=== PATIENT | female | born 1980 | race Caucasian/White ===

== ENCOUNTER 2020-03-21 06:36 | Day surgery (SDC) | payer BC ==
[~2020-03-21 06:36] MED LIST: Clindamycin Phosphate in D5W 900 MG in Premix Bag 1 BAG IV SCH; Gentamicin Pediatric 10 MG/ML 2 ML SDV IV ONE; Sodium Chloride 0.9% 10 ML SDV IV PRN; Sodium Chloride 0.9% 10 ML Syringe FLUSH PRN; Sodium Chloride 0.9% 2.5 ML Syringe FLUSH PRN
[2020-03-21] MEDS ORDERED: Propofol 200 MG/20 ML SDV ONE ×4 (06:49→09:21)
[2020-03-21] MEDS ORDERED: Midazolam 1 MG/ML 2 ML SDV ONE (06:50)
[2020-03-21] MEDS ORDERED: fentaNYL 250 MCG/5 ML SDV ONE (06:50)
[2020-03-21] MEDS ORDERED: Lidocaine 2% 5 ML SDV ONE (06:53)
[2020-03-21] MEDS ORDERED: Dexamethasone 4 MG/ML 5 ML MDV ONE (06:53)
[2020-03-21] MEDS ORDERED: Ondansetron 4 MG/2 ML SDV ONE (06:53)
[2020-03-21] MEDS ORDERED: Glycopyrrolate 0.2 MG/ML SDV ONE ×2 (06:53→08:45)
[2020-03-21] MEDS ORDERED: Rocuronium Bromide 50 MG/5 ML Syringe ONE (06:53)
[2020-03-21 07:11] LABS: CARBON DIOXIDE,CO2 26.7 mmol/L (21.0-32.0); POTASSIUM,K 4.6 mmol/L (3.5-5.1)
[2020-03-21] MEDS ORDERED: Fluorescein 5 ML Vial ONE (07:23)
[2020-03-21] MEDS ORDERED: Methylene Blue 50 MG/10 ML Ampule ONE (07:23)
[2020-03-21] MEDS ORDERED: Bupivacaine 0.25% 10 ML SDV ONE (07:24)
[2020-03-21] MEDS ORDERED: Octyl 2-Cyanoacrylate 1 Tube ONE (07:24)
[2020-03-21] MEDS ORDERED: Gentamicin 460 MG in Dextrose 5% in Water 100 ML IV ONE ×2 (07:30)
--- NOTE | 2020-03-21 07:30 | PCM.PREANE ---
Preanesthetic Assessment - Anesthesia/Transfusion/Family Hx Anesthesia History: Prior Anesthesia Reaction Type of Anesthesia Reaction: Excessive Nausea/Vomiting Other Type of Anesthesia Reaction Comment: "hard to wake up after breast reduction & BP was low" Transfusion History: No Prior Transfusion(s) - Review of Systems General: No Symptoms Pulmonary: No Symptoms Cardiovascular: No Symptoms Gastrointestinal: No Symptoms Neurological: No Symptoms Other: Reports: None - Physical Assessment NPO Status Date: 03/20/20 Vital Signs: Last Vital Signs Temp 97.3 F 03/21/20 06:44 Pulse 76 03/21/20 06:44 Resp 16 03/21/20 06:44 BP 110/57 L 03/21/20 06:44 Pulse Ox 96 03/21/20 06:44 Height: 5 ft 2.75 in Weight: 92.533 kg ASA Class: 2 Mental Status: Alert & Oriented x3 Airway Class: Mallampati = 2 Dentition: Reports: Normal Dentition ROM/Head Extension: Full Lungs: Clear to Auscultation, Normal Respiratory Effort Cardiovascular: Regular Rate, Regular Rhythm - Lab Values: Laboratory Last Values WBC 5.18 K/uL (4.0-11.0) 03/21/20 06:45 RBC 5.14 M/uL (4.30-5.90) 03/21/20 06:45 Hgb 14.7 g/dL (12.0-16.0) 03/21/20 06:45 Hct 44.7 % (36.0-46.0) 03/21/20 06:45 MCV 87.0 fL (80.0-98.0) 03/21/20 06:45 MCH 28.6 pg (27.0-32.0) 03/21/20 06:45 MCHC 32.9 g/dL (31.0-37.0) 03/21/20 06:45 RDW Std Deviation 41.5 fl (28.0-62.0) 03/21/20 06:45 RDW Coeff of David 13 % (11.0-15.0) 03/21/20 06:45 Plt Count 287 K/uL (150-400) 03/21/20 06:45 MPV 10.80 fL (7.40-12.00) 03/21/20 06:45 Nucleated RBC % 0.0 /100WBC 03/21/20 06:45 Nucleated RBCs # 0 K/uL 03/21/20 06:45 Sodium 142 mmol/L (136-145) 03/21/20 06:45 Potassium 4.6 mmol/L (3.5-5.1) 03/21/20 06:45 Chloride 107 mmol/L (98-107) 03/21/20 06:45 Carbon Dioxide 26.7 mmol/L (21.0-32.0) 03/21/20 06:45 BUN 14 mg/dL (7.0-18.0) 03/21/20 06:45 Creatinine 1.1 mg/dL (0.6-1.0) H 03/21/20 06:45 Est Cr Clr Drug Dosing 55.07 mL/min 03/21/20 06:45 Estimated GFR (MDRD) 54.7 ml/min 03/21/20 06:45 Glucose 100 mg/dL (74-106) 03/21/20 06:45 Calcium 9.2 mg/dL (8.5-10.1) 03/21/20 06:45 HCG, Qual NEGATIVE (NEG) 03/21/20 06:45 - Allergies Allergies/Adverse Reactions: Allergies Allergy/AdvReac Type Severity Reaction Status Date / Time cefaclor [From Ceclor] Allergy Hives Verified 03/21/20 06:49 meloxicam [From Mobic] Allergy Anaphylactic Verified 03/21/20 06:50 Shock - Anesthesia Plan Pre-Op Medication Ordered: None - Acknowledgements Anesthesia Type Planned: General Anesthesia Pt an Appropriate Candidate for the Planned Anesthesia: Yes Alternatives and Risks of Anesthesia Discussed w Pt/Guardian: Yes Pt/Guardian Understands and Agrees with Anesthesia Plan: Yes PreAnesthesia Questionnaire - Past Health History Medical/Surgical History: Denies Medical/Surgical History HEENT History: Reports: Other (See Below) Other HEENT History: wears contacts/glasses Cardiovascular History: Reports: None Respiratory History: Reports: None Gastrointestinal History: Reports: None Genitourinary History: Reports: None EFFICIENCY MINER History: Reports: Other OB/BYN History: ETOP x2 Musculoskeletal History: Reports: None Neurological History: Reports: Migraines Psychiatric History: Reports: Anxiety Endocrine/Metabolic History: Reports: Obesity/BMI 30+ Other Endocrine/Metabolic History: thyroid nodule Hematologic History: Reports: None Immunologic History: Reports: None Oncologic (Cancer) History: Reports: None Dermatologic History: Reports: None - Infectious Disease History Infectious Disease History: Reports: Chicken Pox Other Infectious Disease History: when a child - Past Surgical History Head Surgeries/Procedures: Reports: None HEENT Surgical History: Reports: Adenoidectomy, Tonsillectomy Cardiovascular Surgical History: Reports: None Respiratory Surgical History: Reports: None GI Surgical History: Reports: None Female Surgical History: Reports: Breast Reduction, D&C, Other (See Below) Other Female Surgeries/Procedures: operative laparoscopy Endocrine Surgical History: Reports: None Neurological Surgical History: Reports: None Musculoskeletal Surgical History: Reports: None Oncologic Surgical History: Reports: None Dermatological Surgical History: Reports: None - SUBSTANCE USE Tobacco Use Status *Q: Former Tobacco User Tobacco Use Within Last Twelve Months: No - HOME MEDS Home Medications: Home Meds SUMAtriptan succinate [Imitrex] 1 tab PO ASDIRECTED PRN 03/15/20 [History] - CURRENT (IN HOUSE) MEDS Current Meds: Current Medications Clindamycin Phosphate 900 mg/ (Premix) 50 mls @ 89.286 mls/hr IV ONETIME REI Gentamicin Sulfate 460 mg/ (Dextrose/Water) 111.5 mls @ 223 mls/hr IV ONETIME ONE Stop: 03/21/20 07:59 Sodium Chloride (Saline Flush) 10 ml FLUSH ASDIRECTED PRN PRN Reason: Keep Vein Open Sodium Chloride (Saline Flush) 2.5 ml FLUSH ASDIRECTED PRN PRN Reason: Keep Vein Open Sodium Chloride (Normal Saline) 10 ml IV ASDIRECTED PRN PRN Reason: IV Use Discontinued Medications Bupivacaine HCl (Sensorcaine-Mpf 0.25%) Confirm Administered Dose 10 ml .ROUTE .STK-MED ONE Stop: 03/21/20 07:25 Dexamethasone (Dexamethasone) Confirm Administered Dose 20 mg .ROUTE .STK-MED ONE Stop: 03/21/20 06:54 Fentanyl (Sublimaze) Confirm Administered Dose 250 mcg .ROUTE .STK-MED ONE Stop: 03/21/20 06:51 Fluorescein Sodium (Ak-Fluor) Confirm Administered Dose 5 ml .ROUTE .STK-MED ONE Stop: 03/21/20 07:24 Glycopyrrolate (Robinul) Confirm Administered Dose 0.4 mg .ROUTE .STK-MED ONE Stop: 03/21/20 06:54 Lidocaine (Xylocaine-Mpf 2%) Confirm Administered Dose 5 ml .ROUTE .[facility] ONE Stop: 03/21/20 06:54 Methylene Blue (Provayblue) Confirm Administered Dose 50 mg .ROUTE .[facility] ONE Stop: 03/21/20 07:24 Midazolam HCl (Versed 1 Mg/Ml) Confirm Administered Dose 2 mg .ROUTE .[facility] ONE Stop: 03/21/20 06:51 Octyl Cyanoacrylate (Dermabond Advance) Confirm Administered Dose 1 applic .ROUTE .[facility] ONE Stop: 03/21/20 07:25 Ondansetron HCl (Zofran) Confirm Administered Dose 4 mg .ROUTE .[facility] ONE Stop: 03/21/20 06:54 Propofol (Diprivan 20 Ml) Confirm Administered [facility] Stop: 03/21/20 06:50 Rocuronium [place] (Rocuronium [place]) Confirm Administered Dose 50 mg [facility] Stop: 03/21/20 06:54
[2020-03-21] MEDS ORDERED: diphenhydrAMINE 50 MG/ML SDV ONE (08:00)
[2020-03-21] MEDS ORDERED: Furosemide 40 MG/4 ML VIAL ONE (08:35)
[2020-03-21] MEDS ORDERED: HYDROmorphone 2 MG/ML Syringe ONE (08:38)
[2020-03-21] MEDS ORDERED: Ketorolac 30 MG/ML SDV ONE (08:55)
[2020-03-21] MEDS ORDERED: Belladonna Alkaloids/Opium 16.2-30 MG Supp RECTAL PRN (09:31)
[2020-03-21] MEDS ORDERED: Promethazine 25 MG/ML SDV IM PRN (09:31)
[2020-03-21] MEDS ORDERED: Lactated Ringers 1,000 ML IV SCH (09:45)
--- NOTE | 2020-03-21 09:48 | PCM.OPNOTE ---
- General Post-Op/Procedure Note Date of Surgery/Procedure: 03/21/20 Operative Procedure(s): LAVH/BSO/cystoscopy Findings: Normal appearing ovaries/uterus. Bilateral patent ureters with cystoscopy Pre Op Diagnosis: CONNIE III. Menorrhagia. Strong family history of endometrial cancer Post-Op Diagnosis: Same Anesthesia Technique: General ET Tube Primary Surgeon: Calista Valenzuela [place] Floors Installer: Naatliia Devlin Fluid Replacement, Intraop: 1,800 EBL in mLs: 50 Complications: none known Condition: Stable Free Text/Narrative:: Dictation [id number]
[2020-03-21] MEDS ORDERED: fentaNYL 100 MCG/2 ML SDV IVPUSH PRN (10:07)
[2020-03-21] MEDS ORDERED: Acetaminophen 1,000 MG in Premix Bag 1 BAG IV ONE (10:09)
--- NOTE | 2020-03-21 10:37 | PCM.POSTAN ---
POST ANESTHESIA ASSESSMENT - MENTAL STATUS Mental Status: Alert, Oriented - VITAL SIGNS Vital Signs: Last Vital Signs Temp 36.5 C 03/21/20 09:35 Pulse 52 L 03/21/20 10:32 Resp 3 L 03/21/20 10:32 BP 122/59 L 03/21/20 10:32 Pulse Ox 96 03/21/20 10:32 - RESPIRATORY Respiratory Status: Respiratory Rate WNL, Airway Patent, O2 Saturation Stable, Supplemental Oxygen Free Text/Narrative:: 2 L NC - CARDIOVASCULAR CV Status: Pulse Rate WNL, Blood Pressure Stable - GASTROINTESTINAL GI Status: No Symptoms - PAIN Pain Score: 5 - POST OP HYDRATION Hydration Status: Adequate & Stable
--- NOTE | 2020-03-21 11:12 | OR ---
SURGEON: Calista Valenzuela M.D. DATE OF PROCEDURE: 03/21/2020 PREOPERATIVE DIAGNOSES: 1. Cervical intraepithelial neoplasia 3. 2. Menorrhagia. 3. Strong family history of endometrial cancer. POSTOPERATIVE DIAGNOSES: 1. Cervical intraepithelial neoplasia 3. 2. Menorrhagia. 3. Strong family history of endometrial cancer. PROCEDURES PERFORMED: 1. Laparoscopic-assisted vaginal hysterectomy with bilateral salpingo- oophorectomy. 2. Cystoscopy. CARDIOPULMONARY SUPERVISOR: Nataliia Devlin MD ANESTHESIA: General endotracheal anesthesia. ESTIMATED BLOOD LOSS: 50 mL. FLUIDS: 1800 mL of crystalloid. FINDINGS: Normal-appearing tubes and ovaries as well as uterus. Bilateral patent ureters with cystoscopy. DISPOSITION: The patient to PACU, in stable condition. SPECIMENS: To pathology. PROCEDURE DETAILS: Janessa is a 39-year-old female who has ongoing difficulties with menorrhagia when not on Depo-Provera but now more recently on her Depo-Provera, she has been having increasing headaches. At this time, she would like to proceed with definitive surgical intervention especially with the recent diagnosis of CONNIE 3 via colposcopy, biopsies along the endocervix and cervix as well as her strong family history of her mother and grandmother both having endometrial cancer. Risks of procedure have been discussed. Proper consents obtained. The patient was taken to the operating room where she underwent general endotracheal anesthesia, was placed in modified dorsal lithotomy position, and was prepped and draped in the usual sterile fashion. SCDs to the lower extremities. Greene to gravity. Bladder was back-filled with methylene blue. Time-out was performed. A speculum was introduced in the vagina. The posterior lip of cervix grasped with a single-tooth tenaculum. HUMI uterine manipulator was now gently placed. Balloon insufflated. The tenaculum and speculum were now removed from the vagina. Gloves changed. Attention turned abdominally. Infraumbilically, 0.25% Marcaine was introduced. Please see nurse's notes for total amount of local dispensed during the procedure. A midline sagittal infraumbilical 5 mm skin incision was now created. Anterior abdominal wall was tented upward, and a Veress needle gently introduced. Saline hanging drop test was performed. Pneumoperitoneum was achieved. Veress needle was now removed. A 5 mm trocar was introduced with laparoscope, and peritoneal contents were identified. A right and left lower quadrant trocars were now placed under direct visualization after prepping the region with 0.25% Marcaine and creating a 5 mm skin incision. The uterus appeared mobile. Tubes and ovaries appeared normal. Ureters were visualized on either side away from the operative field. The left infundibulopelvic ligament was identified and secured with LigaSure, cauterized, and transected following along the broad ligament, down through the round ligament and then securing the cardinal ligament pedicles, cauterizing and transecting these. A bladder flap was now created after identifying the uterovesical reflection, mobilizing the bladder away from the lower uterine segment and cervix. Attention was now turned to the patient's right side. In a similar fashion, this was performed where the infundibulopelvic ligament was able to be identified, secured, cauterized, transected, followed by moving along the broad ligament, through the round ligament, through the cardinal ligament, and to the upper base of the uterosacral ligament. The bladder flap was now gently hydrodissected, and bladder was nicely mobilized away from the lower uterine segment and cervix. Pneumoperitoneum was released. All laparoscopic instruments removed except for trocars, and attention was turned vaginally. The hips were now further flexed. Knees flexed. The weighted speculum and sidewall retractors were now gently placed. The cervix was grasped with Sabrina. Cervix was circumscribed with Bovie cautery. Anteriorly and posteriorly, the overlying mucosa was dissected away from underlying peritoneum. Anteriorly peritoneum was entered sharply with Metzenbaum scissors. The Lo was placed to mobilize the bladder away from the operative field. In a similar aspect, this was performed at the posterior aspect of the peritoneum. Posterior cul-de- sac was entered sharply and longer weighted speculum was replaced with shorter. Eliceo clamp was used on either side to secure the uterosacral ligament, transected, and suture ligated with 2-0 Vicryl. Further pedicle on either side was able to be secured, transected, and suture ligated. Uterus was handed off to the restaurant maintenance technician. The right fallopian tube and ovary had adhesions. Therefore, it did not mobilize with the uterus. This adhesion was able to be secured with a clamp, transected, and suture ligated. Now in its entirety, uterus, bilateral tubes, and ovaries were handed off to restaurant maintenance technician to be sent to Pathology for further analysis. Upper pedicles were now closely inspected. Hemostasis appeared evident. Uterosacral ligament on either side was plicated to the vaginal apex. There was quite a bit redundancy posteriorly. Therefore, a culdoplasty was performed mobilizing the 2-0 Vicryl from the left uterosacral ligament, reefing the posterior peritoneum and including the right uterosacral ligament pedicle. This was now tied down, which helped to obliterate the posterior cul-de-sac region of redundancy. The cuff was now closed using 0 Vicryl in continuous running locked fashion. With 0 Vicryl sutures trimmed, cuff appeared hemostatic. The balloon was desufflated on the Greene catheter. Greene catheter was removed. Cystoscope was introduced. IV fluorescein had been introduced. The dome of the bladder was able to be visualized followed by the trigone. The right ureteral orifice followed by the left ureteral orifice were able to be visualized. Fluorescein dyed urine was seen streaming from both of them helping to ensure ureteral patency. The bladder was now drained. The scope was removed. A Greene catheter was placed. Vaginal cuff once again inspected, found to be hemostatic. Gloves changed. Attention returned abdominally. A pneumoperitoneum was once again achieved. The pelvis was now closely inspected, well irrigated, and suction dried. The pedicles appeared hemostatic. Pneumoperitoneum was released to 5 mmHg for relief pressure. Once again, pedicles inspected and found to be hemostatic. Therefore, the pneumoperitoneum was able to be released. Laparoscopic instruments were removed including the trocars. The skin edges were reapproximated using 4-0 Monocryl in subcuticular fashion. Sponge, instrument, and needle counts correct x2. The patient tolerated the procedure well overall. She will go to PACU in stable condition, specimens to Pathology. SHARI / MEETA /[id number]
[2020-03-21] MEDS: Acetaminophen/oxyCODONE 325-5 MG Tab PO PRN ×4 (12:58→23:07)
[2020-03-21] MEDS: Ondansetron 4 MG/2 ML SDV IVPUSH PRN ×2 (15:03→21:15)
[2020-03-21] MEDS: Morphine 4 MG/ML Syringe IVPUSH PRN (15:21)
[2020-03-21] MEDS ORDERED: Naproxen 500 MG Tab PO PRN (16:16)
--- NOTE | 2020-03-21 20:50 | PCM.SN.2 ---
- Free Text/Narrative Note: Had quite a lot of cramping discomfort earlier--but is improved now. Denies nausea. VS are stable. Explained intraoperative findings and procedure. Continue postoperative cares. May remove garcia catheter tonight. Labs in the morning.
[2020-03-22] MEDS: Morphine 4 MG/ML Syringe IVPUSH PRN (03:32)
[2020-03-22 05:30] LABS: BLOOD UREA NITROGEN,BUN 10 mg/dL (7.0-18.0); CHLORIDE,CL 107 mmol/L (98-107); GLUCOSE RANDOM 109 mg/dL (74-106); SODIUM,NA 141 mmol/L (136-145)
--- NOTE | 2020-03-22 07:24 | PCM48HPAN ---
Post Anesthesia Note - EVALUATION WITHIN 48HRS OF ANESTHETIC Vital Signs in Normal Range: Yes Patient Participated in Evaluation: Yes Respiratory Function Stable: Yes Airway Patent: Yes Cardiovascular Function Stable: Yes Hydration Status Stable: Yes Pain Control Satisfactory: Yes Nausea and Vomiting Control Satisfactory: Yes (Some soreness. Using analgesics.) Mental Status Recovered: Yes Vital Signs: Last Vital Signs Temp 36.8 C 03/22/20 03:40 Pulse 80 03/22/20 03:40 Resp 15 03/22/20 03:40 BP 142/75 H 03/22/20 03:40 Pulse Ox 95 03/22/20 03:40 - COMMENTS/OBSERVATIONS Free Text/Narrative:: Doing well. Resting quietly at present.
--- NOTE | 2020-03-22 08:21 | PCM.SURGPN ---
- General Info Date of Service: 03/22/20 POD#: 1 Functional Status: Reports: Pain Controlled, Tolerating Diet, Ambulating, Urinating - Review of Systems General: Reports: Fatigue. Denies: Fever, Weakness Pulmonary: Denies: Shortness of Breath Cardiovascular: Denies: Chest Pain, Palpitations, Lightheadedness Gastrointestinal: Reports: Abdominal Pain (cramping, controlled with oral pain meds) Genitourinary: Reports: No Symptoms Musculoskeletal: Reports: No Symptoms Skin: Reports: No Symptoms Neurological: Reports: No Symptoms Psychiatric: Reports: No Symptoms - Patient Data Vitals - Most Recent: Last Vital Signs Temp 36.8 C 03/22/20 03:40 Pulse 80 03/22/20 03:40 Resp 15 03/22/20 03:40 BP 142/75 H 03/22/20 03:40 Pulse Ox 95 03/22/20 03:40 Weight - Most Recent: 92.533 kg I&O - Last 24 Hours: Intake & Output 03/21/20 03/22/20 03/22/20 22:59 06:59 14:59 Intake Total 950 Output Total 75 3030 Balance -75 -2080 Lab Results Last 24 Hrs: Laboratory Results - last 24 hr 03/22/20 03/22/20 Range/Units 05:00 05:00 WBC 9.24 (4.0-11.0) K/uL RBC 4.58 (4.30-5.90) M/uL Hgb 13.2 (12.0-16.0) g/dL Hct 39.3 (36.0-46.0) % MCV 85.8 (80.0-98.0) fL MCH 28.8 (27.0-32.0) pg MCHC 33.6 (31.0-37.0) g/dL RDW Std Deviation 40.6 (28.0-62.0) fl RDW Coeff of David 13 (11.0-15.0) % Plt Count 247 (150-400) K/uL MPV 11.00 (7.40-12.00) fL Neut % (Auto) 67.4 (48.0-80.0) % Lymph % (Auto) 20.3 (16.0-40.0) % [place] % (Auto) 12.2 (0.0-15.0) % Eos % (Auto) 0.0 (0.0-7.0) % Baso % (Auto) 0.1 (0.0-1.5) % Neut # (Auto) 6.2 H (1.4-5.7) K/uL Lymph # (Auto) 1.9 (0.6-2.4) K/uL [place] # (Auto) 1.1 H (0.0-0.8) K/uL Eos # (Auto) 0.0 (0.0-0.7) K/uL Baso # (Auto) 0.0 (0.0-0.1) K/uL Nucleated RBC % 0.0 /100WBC Nucleated RBCs # 0 K/uL Sodium 141 (136-145) mmol/L Potassium 4.0 (3.5-5.1) mmol/L Chloride 107 (98-107) mmol/L Carbon Dioxide 23.0 (21.0-32.0) mmol/L BUN 10 (7.0-18.0) mg/dL Creatinine 1.0 (0.6-1.0) mg/dL Est Cr Clr Drug Dosing 60.57 mL/min Estimated GFR (MDRD) > 60.0 ml/min Glucose 109 H (74-106) mg/dL Calcium 8.4 L (8.5-10.1) mg/dL Med Orders - Current: Current Medications Belladonna Alkaloids/Opium (B & O Supprettes No. 15a) 1 supp RECTAL Q4H PRN PRN Reason: Abdominal Pain Last Admin: 03/21/20 11:16 Dose: 1 supp Documented by: Estradiol (Climara) 0.1 mg TRDERM Q7D [facility] Last Admin: 03/21/20 16:43 Dose: 0.1 mg Documented by: Clindamycin Phosphate 900 mg/ (Premix) 50 mls @ 89.286 mls/hr IV ONETIME [facility] Last Admin: 03/21/20 07:31 Dose: 89.286 mls/hr Documented by: Lactated Ringer's (Ringers, Lactated) 1,000 mls @ 125 mls/hr IV ASDIRECTED [facility] Last Admin: 03/21/20 15:27 Dose: 125 mls/hr Documented by: Morphine Sulfate (Morphine) 4 mg IVPUSH Q2H PRN PRN Reason: Pain (severe 7-10) Last Admin: 03/22/20 03:32 Dose: 4 mg Documented by: Naproxen (Naprosyn) 500 mg PO Q12HR PRN PRN Reason: Abdominal Pain Last Admin: 03/21/20 20:10 Dose: 500 mg Documented by: Ondansetron HCl (Zofran) 4 mg IVPUSH Q6H PRN PRN Reason: Nausea/Vomiting Last Admin: 03/21/20 21:15 Dose: 4 mg Documented by: Oxycodone/Acetaminophen (Percocet 325-5 Mg) 1 tab PO Q4H PRN PRN Reason: Pain (moderate 4-6) Last Admin: 03/21/20 23:07 Dose: 1 tab Documented by: Oxycodone/Acetaminophen (Percocet 325-5 Mg) 2 tab PO Q4H PRN PRN Reason: Pain (moderate 4-6) Last Admin: 03/21/20 16:44 Dose: 2 tab Documented by: Promethazine HCl (Phenergan) 25 mg IM Q6H PRN PRN Reason: Nausea/Vomiting Sodium Chloride (Saline Flush) 10 ml FLUSH ASDIRECTED PRN PRN Reason: Keep Vein Open Sodium Chloride (Saline Flush) 2.5 ml FLUSH ASDIRECTED PRN PRN Reason: Keep Vein Open Sodium Chloride (Normal Saline) 10 ml IV ASDIRECTED PRN PRN Reason: IV Use Discontinued Medications Bupivacaine HCl (Sensorcaine-Mpf 0.25%) Confirm Administered Dose 10 ml .ROUTE .STK-MED ONE Stop: 03/21/20 07:25 Dexamethasone (Dexamethasone) Confirm Administered Dose 20 mg .ROUTE .STK-MED ON E Stop: 03/21/20 06:54 Diphenhydramine HCl (Benadryl) Confirm Administered Dose 50 mg .ROUTE .STK-MED ONE Stop: 03/21/20 08:01 Fentanyl (Sublimaze) Confirm Administered Dose 250 mcg .ROUTE .STK-MED ONE Stop: 03/21/20 06:51 Fentanyl (Sublimaze) 50 mcg IVPUSH Q5M PRN PRN Reason: Pain (severe 7-10) Stop: 03/22/20 10:09 Last Admin: 03/21/20 10:20 Dose: 50 mcg Documented by: Fluorescein Sodium (Ak-Fluor) Confirm Administered Dose 5 ml .ROUTE .[facility]-MED ONE Stop: 03/21/20 07:24 Furosemide (Lasix) Confirm Administered Dose 40 mg .ROUTE .[facility] ONE Stop: 03/21/20 08:36 Glycopyrrolate (Robinul) Confirm Administered Dose 0.4 mg .ROUTE .[facility]-MED ONE Stop: 03/21/20 06:54 Glycopyrrolate (Robinul) Confirm Administered Dose 0.4 mg .ROUTE .[facility]-MED ONE Stop: 03/21/20 08:46 Hydromorphone HCl (Dilaudid) Confirm Administered Dose 2 mg .ROUTE .[facility] ONE Stop: 03/21/20 08:39 Gentamicin Sulfate 460 mg/ (Dextrose/Water) 111.5 mls @ 223 mls/hr IV ONETIME ONE Stop: 03/21/20 07:59 Last Admin: 03/21/20 07:44 Dose: 223 mls/hr Documented by: Acetaminophen (Ofirmev 1000 Mg/100 Ml) Confirm Administered Dose 100 mls @ as directed .ROUTE .[facility] ONE Stop: 03/21/20 10:09 Acetaminophen 1,000 mg/ Premix 100 mls @ 400 mls/hr IV NOW ONE Stop: 03/21/20 10:23 Last Admin: 03/21/20 10:12 Dose: 400 mls/hr Documented by: Ketorolac Tromethamine (Toradol) Confirm Administered Dose 30 mg .ROUTE .[facility] ONE Stop: 03/21/20 08:56 Lidocaine (Xylocaine-Mpf 2%) Confirm Administered Dose 5 ml .ROUTE .[facility]-MED ONE Stop: 03/21/20 06:54 Methylene Blue (Provayblue) Confirm Administered Dose 50 mg .ROUTE .[facility] ONE Stop: 03/21/20 07:24 Midazolam HCl (Versed 1 Mg/Ml) Confirm Administered Dose 2 mg .ROUTE .[facility] ONE Stop: 03/21/20 06:51 Octyl Cyanoacrylate (Dermabond Advance) Confirm Administered Dose 0 applic .ROUTE .[facility] ONE Stop: 03/21/20 07:25 Ondansetron HCl (Zofran) Confirm Administered Dose 4 mg .ROUTE .[facility]-MED ONE Stop: 03/21/20 06:54 Propofol (Diprivan 20 Ml) Confirm Administered Dose 200 mg .ROUTE .STK-MED ONE Stop: 03/21/20 06:50 Propofol (Diprivan 20 Ml) Confirm Administered Dose 400 mg .ROUTE .STK-MED ONE Stop: 03/21/20 07:28 Propofol (Diprivan 20 Ml) Confirm Administered Dose 400 mg .ROUTE .STK-MED ONE Stop: 03/21/20 08:37 Propofol (Diprivan 20 Ml) Confirm Administered Dose 200 mg .ROUTE .STK-MED ONE Stop: 03/21/20 09:22 Rocuronium Elizabeth (Rocuronium Elizabeth) Confirm Administered Dose 50 mg .ROUTE .STK-MED ONE Stop: 03/21/20 06:54 - Exam Wound/Incisions: Dressing Dry and Intact General: Alert, Oriented Lungs: Normal Respiratory Effort Cardiovascular: Regular Rate, Regular Rhythm GI/Abdominal Exam: Normal Bowel Sounds, Soft Extremities: Pedal Edema (trace). No: Jose R's Sign Skin: Warm, Dry, Intact Neurological: No New Focal Deficit Psy/Mental Status: Alert, Normal Affect, Normal Mood Sepsis Event Note - Evaluation Sepsis Screening Result: No Definite Risk - Focused Exam Vital Signs: Vital Signs Temp Pulse Resp BP Pulse Ox Pulse Ox 03/22/20 03:40 36.8 C 80 15 142/75 H 95 03/21/20 23:35 37.0 C 86 15 152/84 H 97 03/21/20 22:38 98 - Problem List & Annotations (1) Status post total hysterectomy and bilateral salpingo-oophorectomy SNOMED Code(s): 837381888 Code(s): Z90.710 - ACQUIRED ABSENCE OF BOTH CERVIX AND UTERUS; Z90.722 - ACQUIRED ABSENCE OF OVARIES, BILATERAL; Z90.79 - ACQUIRED ABSENCE OF OTHER GENITAL ORGAN(S) Status: Acute Current Visit: Yes - Problem List Review Problem List Initiated/Reviewed/Updated: Yes - My Orders Last 24 Hours: Active Orders 24 hr Category Date Time Status Patient Status [ADT] Routine ADT 03/21/20 09:34 Active Antiembolic Devices [RC] PER UNIT ROUTINE Care 03/21/20 09:34 Active Bradycardia-Neuroaxis [employer] [RC] ROUTINE Care 03/21/20 10:07 Active Hypertension-Neuroaxis [employer] [RC] ROUTINE Care 03/21/20 10:07 Active Hypotension-Neuroaxis [employer] [RC] ROUTINE Care 03/21/20 10:07 Active May Shower [RC] ASDIRECTED Care 03/21/20 09:31 Active Notify Provider Intake and Out [RC] ASDIRECTED Care 03/21/20 09:34 Active Notify Provider Vital Signs [RC] ASDIRECTED Care 03/21/20 09:34 Active Oxygen Therapy [RC] ASDIRECTED Care 03/21/20 09:34 Active RT Incentive Spirometry [RC] Q2HWA Care 03/21/20 09:34 Active Ready for Discharge [RC] PER UNIT ROUTINE Care 03/22/20 08:18 Ordered Up With Assistance [RC] PER UNIT ROUTINE Care 03/21/20 09:34 Active Up ad [place]elope [RC] PER UNIT ROUTINE Care 03/21/20 09:34 Active Urinary Catheter Removal [RC] Per Unit Routine Care 03/21/20 09:34 Active Vital Signs [RC] PER UNIT ROUTINE Care 03/21/20 09:34 Active Regular Diet [DIET] Diet 03/21/20 Lunch Active Acetaminophen/oxyCODONE [Percocet 325-5 MG] Med 03/21/20 09:31 Active 1 tab PO Q4H PRN Acetaminophen/oxyCODONE [Percocet 325-5 MG] Med 03/21/20 09:31 Active 2 tab PO Q4H PRN Belladonna/Opium [B & O Supprettes No. 15A] Med 03/21/20 09:31 Active 1 supp RECTAL Q4H PRN Lactated Ringers [Ringers, Lactated] 1,000 ml Med 03/21/20 09:45 Active IV ASDIRECTED Morphine Med 03/21/20 09:31 Active 4 mg IVPUSH Q2H PRN Naproxen [Naprosyn] Med 03/21/20 16:16 Active 500 mg PO Q12HR PRN Ondansetron [Zofran] Med 03/21/20 09:31 Active 4 mg IVPUSH Q6H PRN Promethazine [Phenergan] Med 03/21/20 09:31 Active 25 mg IM Q6H PRN estradioL [Climara] Med 03/21/20 09:45 Active 0.1 mg TRDERM Q7D [facility] [OM.PC] Per Unit Routine Oth 03/21/20 09:35 Ordered Peripheral IV Discontinue [OM.PC] Routine Oth 03/21/20 09:34 Ordered Sequential Compression Device [OM.PC] Per Unit Routine Oth 03/21/20 09:34 Ordered Resuscitation Status Routine Resus Stat 03/21/20 09:31 Ordered Medication Orders Belladonna Alkaloids/Opium (B & O Supprettes No. 15a) 1 supp RECTAL Q4H PRN PRN Reason: Abdominal Pain Last Admin: 03/21/20 11:16 Dose: 1 supp Documented by: TANNER Estradiol (Climara) 0.1 mg TRDERM Q7D [facility] Last Admin: 03/21/20 16:43 Dose: 0.1 mg Documented by: TANNER Clindamycin Phosphate 900 mg/ (Premix) 50 mls @ 89.286 mls/hr IV ONETIME [facility] Last Admin: 03/21/20 07:31 Dose: 89.286 mls/hr Documented by: MAURYUNDTIMA Lactated Ringer's (Ringers, Lactated) 1,000 mls @ 125 mls/hr IV ASDIRECTED [facility] Last Admin: 03/21/20 15:27 Dose: 125 mls/hr Documented by: TANNER Morphine Sulfate (Morphine) 4 mg IVPUSH Q2H PRN PRN Reason: Pain (severe 7-10) Last Admin: 03/22/20 03:32 Dose: 4 mg Documented by: Admin: 03/21/20 15:21 Dose: 4 mg Documented by: TANNER Naproxen (Naprosyn) 500 mg PO Q12HR PRN PRN Reason: Abdominal Pain Last Admin: 03/21/20 20:10 Dose: 500 mg Documented by: LUCIANO Ondansetron HCl (Zofran) 4 mg IVPUSH Q6H PRN PRN Reason: Nausea/Vomiting Last Admin: 03/21/20 21:15 Dose: 4 mg Documented by: Admin: 03/21/20 15:03 Dose: 4 mg Documented by: TANNER Oxycodone/Acetaminophen (Percocet 325-5 Mg) 1 tab PO Q4H PRN PRN Reason: Pain (moderate 4-6) Last Admin: 03/21/20 23:07 Dose: 1 tab Documented by: Admin: 03/21/20 21:48 Dose: 1 tab Documented by: LUCIANO Oxycodone/Acetaminophen (Percocet 325-5 Mg) 2 tab PO Q4H PRN PRN Reason: Pain (moderate 4-6) Last Admin: 03/21/20 16:44 Dose: 2 tab Documented by: Admin: 03/21/20 12:58 Dose: 2 tab Documented by: TANNER Promethazine HCl (Phenergan) 25 mg IM Q6H PRN PRN Reason: Nausea/Vomiting Sodium Chloride (Saline Flush) 10 ml FLUSH ASDIRECTED PRN PRN Reason: Keep Vein Open Sodium Chloride (Saline Flush) 2.5 ml FLUSH ASDIRECTED PRN PRN Reason: Keep Vein Open Sodium Chloride (Normal Saline) 10 ml IV ASDIRECTED PRN PRN Reason: IV Use - Assessment Assessment (Free Text/Narrative):: POD 1 status post LAVH/BSO/cystoscopy - Plan Plan (Free Text/Narrative):: Labs are reassuring, VS are stable overall. Blood pressures mildly elevated--but mostly related to pain control. She has good urine output. Is ambulating, tolerating regular diet and voiding. Would like to go home. Discharge instructions reviewed. Follow up at [facility] 2 and 6 weeks. Discharge to home today.
[2020-03-22] MEDS: Acetaminophen/oxyCODONE 325-5 MG Tab PO PRN (08:32)
== END 2020-03-22 10:15 | disposition home or self-care (01) ==
LOC: MW.SDS 06:36 → MW.OB 09:25 → MW.SDS 03-22 10:15
PROVIDERS: ATTEND Obstetrics & Gynecology
DX: D06.9 Carcinoma in situ of cervix, unspecified (principal); N80.0 Endometriosis of uterus; N83.02 Follicular cyst of left ovary; N83.01 Follicular cyst of right ovary; G43.909 Migraine, unspecified, not intractable, without status migrainosus; Z88.8 Allergy status to other drugs, medicaments and biological substances; E66.9 Obesity, unspecified; Z80.49 Family history of malignant neoplasm of other genital organs; Z79.899 Other long term (current) drug therapy; Z87.891 Personal history of nicotine dependence; Z68.36 Body mass index [BMI] 36.0-36.9, adult
CPT/HCPCS: 36415; 58552; 80048; 84703; 85025; 85027; 86850; 86900; 86901; 88307; A9270; J0131; J1100; J1170; J1200; J1580; J1885; J1940; J2250; J2270; J2405; J2704; J3010; J3490; J7120; 00944; J2001

== ENCOUNTER 2021-04-08 20:22 | Emergency (ER) | payer BC ==
[2021-04-08] MEDS ORDERED: Morphine 4 MG/ML VIAL IVPUSH ONE (20:47)
[2021-04-08] MEDS ORDERED: Ondansetron 4 MG/2 ML SDV IVPUSH ONE (20:47)
[2021-04-08 21:00] LABS: CARBON DIOXIDE,CO2 21.9 mmol/L (21.0-32.0); POTASSIUM,K 3.2 mmol/L (3.5-5.1)
[2021-04-08] MEDS ORDERED: Sodium Chloride 0.9% 1,000 ML IV SCH (21:00)
[2021-04-08] MEDS ORDERED: Aspirin 81 MG Tab.Chew PO ONE (21:04)
[2021-04-08] MEDS ORDERED: Heparin Sodium 5,000 Units/ML Vial IVPUSH STA (21:06)
[2021-04-08] MEDS ORDERED: Heparin Sodium/0.45% NaCl 500 ML IV SCH (21:15)
[2021-04-08 21:21] LABS: CORONAVIRUS COVID-19 NAA POSITIVE (NEGATIVE); INFLUENZA A NAA NEGATIVE (NEGATIVE); INFLUENZA B NAA NEGATIVE (NEGATIVE)
[2021-04-08] MEDS: Nitroglycerin 0.4 MG Tab.SL SL PRN ×3 (21:29→22:08)
[2021-04-08] MEDS ORDERED: Iopamidol 755 MG/ML 500 ML Multipack Bottle IVPUSH ONE (21:51)
[2021-04-08] MEDS ORDERED: fentaNYL 50 MCG/ML SDV IVPUSH ONE ×2 (22:19→23:35)
== END 2021-04-09 00:33 ==
LOC: MW.ED 20:22
DX: I21.4 Non-ST elevation (NSTEMI) myocardial infarction (principal); U07.1 COVID-19; E66.9 Obesity, unspecified; Z68.37 Body mass index [BMI] 37.0-37.9, adult; Z88.1 Allergy status to other antibiotic agents; Z88.8 Allergy status to other drugs, medicaments and biological substances
CPT/HCPCS: 0240U; 36415; 71045; 71275; 80053; 81001; 84443; 84484; 85025; 85379; 85610; 93005; 96374; 96375; 96376; 99285; A9270; J1644; J2270; J2405; J3010; J7030; Q9967; 93010; 99284

== ENCOUNTER 2022-01-15 11:38 | Emergency (ER) | payer BC ==
[2022-01-15] MEDS ORDERED: Sodium Chloride 0.9% 10 ML Syringe FLUSH PRN (12:12)
[2022-01-15] MEDS ORDERED: Sodium Chloride 0.9% 2.5 ML Syringe FLUSH PRN (12:12)
[2022-01-15] MEDS ORDERED: Ketorolac 30 MG/ML SDV IVPUSH ONE (12:13)
[2022-01-15 12:43] LABS: CARBON DIOXIDE,CO2 24.6 mmol/L (21.0-32.0); POTASSIUM,K 3.7 mmol/L (3.5-5.1)
[2022-01-15] MEDS ORDERED: Morphine 2 MG/ML SYRINGE IVPUSH ONE (13:16)
== END 2022-01-15 14:25 | disposition home or self-care (01) ==
LOC: MW.ED 11:38
DX: R07.9 Chest pain, unspecified (principal); E66.9 Obesity, unspecified; Z68.37 Body mass index [BMI] 37.0-37.9, adult; Z88.1 Allergy status to other antibiotic agents; Z88.8 Allergy status to other drugs, medicaments and biological substances; Z79.899 Other long term (current) drug therapy; Z20.822 Contact with and (suspected) exposure to COVID-19
CPT/HCPCS: 36415; 71045; 80053; 84484; 85025; 85379; 87635; 93005; 96374; 96375; 99285; J1885; J2270; J3490; U0002